=== PATIENT | male | born 1995 | race Caucasian/White ===

== ENCOUNTER 2019-06-17 14:21 | Emergency (ER) | payer OTHER ==
[2019-06-17 14:46] VITALS: BP 111/71
[2019-06-17 15:41] LABS: Influenza B Molecular POSITIVE (Negative)
[2019-06-17] MEDS ORDERED: Albuterol 2.5 MG/3 ML NEB.SOL* (0.083%) INH ONE (15:45)
--- NOTE | 2019-06-17 17:05 | UC ---
FLU HPI - HPI Summary HPI Summary: 23 yo male presenting with fever, chills, sore throat, and dry cough x 4 days. Patient states that fever was 102 but no fever since yesterday. States today he was having difficulty breathing and no shortness of breath. States he thinks he has the flu. Does note a history of asthma as a kid but states it does not act up unless he becomes ill. States he has an inhaler at home that he believes is too old to be efficacious. - History of Current Complaint Chief Complaint: UCRespiratory Stated Complaint: FLU LIKE SYMPTOMS Hx Obtained From: Patient Pain Intensity: 0 Pain Scale Used: 0-10 Numeric - Allergy/Home Medications Allergies/Adverse Reactions: Allergies Allergy/AdvReac Type Severity Reaction Status Date / Time No Known Allergies Allergy Verified 06/17/19 14:40 Home Medications: Home Medications Albuterol HFA INHALER* [Ventolin HFA Inhaler*] 1 - 2 puff INH Q6H PRN #1 mdi [Rx] Atomoxetine HCl 1 cap QAM 06/17/19 [History Confirmed 06/17/19] LevoCETirizine TAB (NF) [Xyzal TAB (NF)] 5 mg PO QAM 06/17/19 [History Confirmed 06/17/19] guanFACINE TAB* [Tenex TAB*] 1 tab BEDTIME 06/17/19 [History Confirmed 06/17/19] PMH/Surg Hx/FS Hx/Imm Hx Respiratory History: Asthma - Surgical History Surgical History: None - Family History Known Family History: Positive: Non-Contributory - Social History Alcohol Use: Weekly Substance Use Type: None Smoking Status (MU): Never Smoked Tobacco Review of Systems All Other Systems Reviewed And Are Negative: Yes Constitutional: Positive: Fever, Chills, Fatigue ENT: Positive: Sore Throat, Sinus Congestion Respiratory: Positive: Shortness Of Breath, Cough Cardiovascular: Positive: Negative Gastrointestinal: Positive: Negative Musculoskeletal: Positive: Myalgia Neurological/Mental Status: Positive: Negative Physical Exam - Summary Physical Exam Summary: Vital Signs Reviewed: Yes A+Ox3, no distress, well-appearing Eyes: Conjunctiva Clear ENT: Hearing grossly normal, TM x 2 clear, moist, uvula midline, no exudate, no erythema Neck: Positive: Supple Respiratory: Positive: No respiratory distress, No accessory muscle use + CTA throughout no w/r Cardiovascular: RRR nl s1, s2 no m/r Musculoskeletal Exam: MCKEON x 4 without difficulty Neurological: Positive: Alert Psychological: Positive: age appropriate behavior Skin: Positive: no rash, no ecchymosis Vital Signs: Initial Vital Signs Temp 99.5 F 06/17/19 14:41 Pulse 102 06/17/19 14:41 Resp 16 06/17/19 14:41 BP 111/71 06/17/19 14:41 Pulse Ox 99 06/17/19 14:41 Flu Course/Dx - Course Course Of Treatment: Rapid flu positive B. Patient received alubterol neb here which he stated relieved his sob. Educated on influenza and instructed to continue with symptomatic treatment. I provided patient with a prescription for a new albuterol inhaler. Instructed to follow up with pcp for any new or worsening symptoms. Patient voiced understanding and agreed with treatment plan. - Differential Dx/Diagnosis Differential Diagnosis/HQI/PQRI: Bronchitis, Influenza, Upper Respiratory Infection Provider Diagnosis: Influenza B, Shortness of breath Discharge ED - Sign-Out/Discharge Documenting (check all that apply): Patient Departure All imaging exams completed and their final reports reviewed: No Studies - Discharge Plan Condition: Stable Disposition: HOME Prescriptions: Albuterol HFA INHALER* [Ventolin HFA Inhaler*] 1 - 2 puff INH Q6H PRN #1 mdi PRN Reason: Sob/Wheezing Patient Education Materials: Influenza (ED) Referrals: [facility] [place] [Outside] - If Needed Additional Instructions: As discussed, you tested positive for influenza today. Use the inhaler as needed for shortness of breath. Get plenty of rest and increase your fluid intake. Follow up with your primary care provider or the [facility] listed below if symptoms do not improve within 7 days. - Billing Disposition and Condition Condition: STABLE Disposition: Home
== END 2019-06-17 16:52 | disposition home or self-care (01) ==
LOC: UCEAST 14:21
DX: J10.1 Influenza due to other identified influenza virus with other respiratory manifestations (principal); R06.02 Shortness of breath; J45.909 Unspecified asthma, uncomplicated
CPT/HCPCS: 99212; G0463